=== PATIENT | female | born 1970 | race Caucasian/White ===

== ENCOUNTER → 2016-12-20 | Outpatient (CLI) | payer BC ==
[~2016-12-20] MED LIST: ALBUAER INH; ALBUAER2 INH; EST1 PO; FIBER PO; LORA24TA7 PO; PRENTAB26 PO; TYLOTC500 PO; VITA2500 PO
--- NOTE | 2016-12-20 13:45 | MAMMOGRAPHY REPORT ---
BILATERAL DIGITAL SCREENING MAMMOGRAM TOMOSYNTHESIS WITH CAD: 12/20/2016 CLINICAL HISTORY: Asymptomatic Pre-Reduction. TECHNIQUE: Breast tomosynthesis in addition to standard 2D mammography was performed. Current study was also evaluated with a Computer Aided Detection (CAD) system. COMPARISON: Comparison is made to exams dated: 05/18/2016 ultrasound, 05/18/2016 mammogram, 12/08/2015 mammogram, 12/03/2014 mammogram, 11/19/2013 ultrasound, and 11/19/2013 mammogram - [facility]. BREAST COMPOSITION: There are scattered areas of fibroglandular density in both breasts. FINDINGS: No suspicious masses, calcifications, or areas of architectural distortion are noted in e ither breast. There has been no significant interval change compared to prior exams. Circumscribed benign-appearing 1.9 cm mass in the left subareolar breast is stable compared to prior exams, and wa s shown to represent a benign cyst on a prior ultrasound exam. IMPRESSION: ACR BI-RADS CATEGORY 2: BENIGN There is no mammographic evidence of malignancy. A 1 year screening mammogram is recommended. The p atient will receive written notification of the results. Approximately 10% of breast cancers are not detected with mammography. A negative mammographic repor t should not delay biopsy if a clinically suggestive mass is present. Malou Ceo M.D. /:12/20/2016 13:24:45 Scroll Assembler: Megan Bolaños [facility] letter sent: Normal 1/2 BI-RADS Code: ACR BI-RADS Category 2: Benign
== END | disposition home or self-care (01) ==
LOC: C.MAMM 12:20
PROVIDERS: ATTEND Obstetrics & Gynecology
DX: Z12.31 Encounter for screening mammogram for malignant neoplasm of breast (principal)

== ENCOUNTER 2017-01-07 07:47 | Observation (INO) | payer BC ==
[2017-01-03 08:04] VITALS: BMI 40.0
--- NOTE | 2017-01-03 08:35 | PAT Medication Instructions ---
Service Date Jan 03, 2017. Current Home Medication List Albuterol Sulfate (Proventil Hfa), 2 PUFF INH Q4 PRN for SOB/Wheezing Estradiol (Estradiol), 1 MG PO QAM Fiber Laxative (Fiber Laxative), 1 TAB PO QAM Loratadine/Pseudoephedrine (Claritin-D 24 Hour), 1 TAB PO QAM Multivit/Min/Iron/Fol Ac/Pren ( Vitamin), 1 TAB PO QAM Vitamin A (A-25), 1 CAP PO QAM Medication Instructions For Your Scheduled Surgery Estradiol (Estradiol), 1 MG PO QAM (patient stopped already) Multivit/Min/Iron/Fol Ac/Pren ( Vitamin), 1 TAB PO QAM (patient stopped already) Vitamin A (A-25), 1 CAP PO QAM (per surgeon instructions) - Hold the following medications the morning of surgery: Loratadine/Pseudoephedrine (Claritin-D 24 Hour), 1 TAB PO QAM Fiber Laxative (Fiber Laxative), 1 TAB PO QAM - Take the following medications the morning of surgery with a sip of water: Albuterol Sulfate (Proventil Hfa), 2 PUFF INH Q4 PRN for SOB/Wheezing - Take the following medications as scheduled the night before surgery: Albuterol Sulfate (Proventil Hfa), 2 PUFF INH Q4 PRN for SOB/Wheezing If you have any questions please call us at [phone] or [phone] ( [place]) or [phone]
[2017-01-03 09:36] LABS: BASO % 0.3 %; BASO ABS # 0.02 K/uL (0-0.2); COMPLETE YES; EOS % 3.2 %; HEMATOCRIT 40.9 % (37-47); IG% 0.4 %; LYMPH % 26.1 %; LYMPH ABS # 2.06 K/uL (1.2-3.4); MEAN CELL VOLUME 90.5 fL (80-100); MEAN CORPUSCULAR HEMOGLOBIN 31.2 pg (25-34); MEAN CORPUSCULAR HGB CONC 34.5 g/dl (32-36); MEAN PLATELET VOLUME 9.6 fL (7.4-10.4); MONO % 7.1 %; NEUT % 62.9 %; PLATELET COUNT 305 K/uL (130-400); RED BLOOD COUNT 4.52 M/uL (4.2-5.4)
[2017-01-03 09:56] LABS: PARTIAL THROMBOPLASTIN RATIO 1.1; PROTHROMBIN TIME (PATIENT) 10.2 SECONDS (9.0-12.0)
[2017-01-03 09:58] LABS: BUN/CREATININE RATIO 18.2 (10-20); CREATININE 0.72 mg/dl (0.60-1.20); POTASSIUM 4.4 mmol/L (3.5-5.1)
[2017-01-07] VITALS (8 sets, daily range): BP systolic 109–143; BP diastolic 68–86; PULSE 62–73; TEMP 36.6–37.2; O2SAT 91–97; Ht 177.8 cm; Wt 126.8 kg
[~2017-01-07] VITALS: Ht 177.8 cm; Wt 126.8 kg
[~2017-01-07 07:47] MED LIST changes: -ALBUAER2 INH; +CEFAZOLIN 3000 MG/65 ML D5W IV SCH; +ENOXAPARIN 40 MG/0.4 ML SYR SQ SCH; +LACTATED RINGER'S 1000ML 1,000 ML IV SCH; +SCOPOLAMINE 1.5 MG TDSY TD SCH; -TYLOTC500 PO
[2017-01-07] MEDS ORDERED: NEOSTIGMINE METHYLSULFATE 5 MG/5 ML SYR ONE (07:59)
[2017-01-07] MEDS ORDERED: MIDAZOLAM HCL 1 MG/ML 2ML VIAL ONE (07:59)
[2017-01-07] MEDS ORDERED: LIDOCAINE/EPINEPHRINE 1% 20 ML VIAL ONE (07:59)
[2017-01-07] MEDS ORDERED: LIDOCAINE HCL 1% 20 ML VIAL ONE (07:59)
[2017-01-07] MEDS ORDERED: DEXAMETHASONE SOD INJ 4 MG/ML VIAL ONE (07:59)
[2017-01-07] MEDS ORDERED: EpINEphrine INJ 1MG/ML AMP 1 MG/ML AMP ONE (07:59)
[2017-01-07] MEDS ORDERED: GLYCOPYRROLATE INJ 0.2 MG/ML VIAL ONE (07:59)
[2017-01-07] MEDS ORDERED: ROCURONIUM BROMIDE 10 MG/ML 5 ML VIAL ONE ×2 (07:59→09:59)
[2017-01-07] MEDS ORDERED: LIDOCAINE HCL 2% 2 ML VIAL (20MG/ML) ONE (07:59)
[2017-01-07] MEDS ORDERED: PROPOFOL IV EMULSION 10 MG/ML 20 ML VIAL IV ONE (07:59)
[2017-01-07] MEDS ORDERED: FENTANYL CITRATE INJ 50 MCG/1 ML 2 ML VIAL ONE (07:59)
[2017-01-07] MEDS ORDERED: ONDANSETRON INJ 2 MG/ML 2 ML VIAL ONE ×2 (07:59→11:20)
[2017-01-07] MEDS ORDERED: BUPIVACAINE 0.25% 30 ML VIAL ONE (08:00)
--- NOTE | 2017-01-07 09:10 | History & Physical Bridge Note ---
H&P Re-Evaluation Bridge Note: I have examined the patient, reviewed the History & Physical and in the interval since the performance of the History & Physical I have noted the following changes of clinical significance: No changes noted
[2017-01-07] MEDS ORDERED: FENTANYL CITRATE INJ 50 MCG/1 ML 2 ML VIAL IV PRN (09:30)
[2017-01-07] MEDS ORDERED: ONDANSETRON INJ 2 MG/ML 2 ML VIAL IV PRN ×2 (09:30→13:45)
[2017-01-07] MEDS ORDERED: ATROPINE SULFATE 0.1 MG/ML 5ML SYR IV PRN (09:30)
[2017-01-07] MEDS ORDERED: PROMETHAZINE HCL INJ 6.25 MG in SODIUM CHLORIDE 0.9% 50ML 50 ML IV PRN (09:30)
[2017-01-07] MEDS ORDERED: EpHEDrine SULFATE INJ 50 MG/ML AMP IV PRN (09:30)
[2017-01-07] MEDS ORDERED: HYDROmorphone INJ 1 MG/ML SYR IV PRN (09:30)
[2017-01-07] MEDS ORDERED: METOCLOPRAMIDE HCL INJ 5 MG/ML 2 ML VIAL ONE (09:56)
[2017-01-07] MEDS ORDERED: DiphenhydrAMINE HCL 50 MG/ML VIAL ONE (09:56)
[2017-01-07] MEDS ORDERED: ARTIFICIAL TEARS OP OINT 3.5 GM TUBE ONE (09:56)
[2017-01-07] MEDS ORDERED: HYDROmorphone INJ 2 MG/ML SYR/VIAL ONE (10:03)
--- NOTE | 2017-01-07 13:35 | [facility] Post Operative Brief Note ---
Immediate Operative Summary Operative Date Jan 07, 2017. Pre-Operative Diagnosis Breast hypertrophy Post-Operative Diagnosis Same as pre-operative diagnosis Procedure(s) Performed Bilateral Breast Reduction with Free Nipple Graft Surgeon Dr. Jael Cabrera Tanker Driver Surgeon(s) Ashley Peterson PA-C Estimated Blood Loss 75ml Findings none Specimens A: Left breast tissue (1172 grams) B: Right breast tissue (1224 grams) Drains BRANT x2 Anesthesia general Complication(s) None Disposition Recovery Room / PACU
[2017-01-07] MEDS ORDERED: OXAZEPAM 10MG CAP PO PRN (13:45)
[2017-01-07] MEDS ORDERED: DiphenhydrAMINE HCL 50 MG/ML VIAL IV PRN (13:45)
[2017-01-07] MEDS ORDERED: MoRPHine SULFATE 4 MG/ML 1 ML CARP\\VIAL IV PRN (13:45)
[2017-01-07] MEDS ORDERED: PROMETHAZINE HCL INJ 12.5 MG in SODIUM CHLORIDE 0.9% 50ML 50 ML IV PRN (13:45)
[2017-01-07] MEDS ORDERED: ACETAMINOPHEN 325 MG TAB PO PRN (13:45)
[2017-01-07] MEDS ORDERED: OXYCODONE/ACETAMINOPHEN 5-325 TAB PO PRN ×2 (13:45)
[2017-01-07] MEDS ORDERED: MoRPHine SULFATE 2 MG/ML CARP IV PRN ×2 (13:45)
--- NOTE | 2017-01-07 14:14 | Anesthesiology Progress Note ---
Anesthesia Post Op Note Date & Time Jan 07, 2017 at 14:14 Vital Signs Pain Intensity: 0 Vital Signs Past 12 Hours Date Time Temp Pulse Resp B/P Pulse Ox O2 Delivery O2 Flow Rate FiO2 01/07/17 14:10 36.2 64 16 136/84 100 Nasal Cannula 2 01/07/17 14:00 67 16 140/84 100 Mask 10 01/07/17 13:50 66 16 143/82 100 Mask 10 01/07/17 13:43 36.1 64 16 137/86 100 Mask 10 01/07/17 08:10 36.8 71 18 127/71 95 Room Air Notes Mental Status: alert / awake / arousable, participated in evaluation Pt Amnestic to Procedure: Yes Nausea / Vomiting: adequately controlled Pain: adequately controlled Airway Patency, RR, SpO2: stable & adequate BP & HR: stable & adequate Hydration State: stable & adequate Anesthetic Complications: no major complications apparent
[2017-01-07] MEDS ORDERED: IV FLUIDS COMPLETED PRN (14:30)
[2017-01-07] MEDS: LACTATED RINGER'S 1000ML 1,000 ML IV SCH ×2 (15:25→23:41)
[2017-01-07] MEDS: CEFAZOLIN IV 2,000 MG in DEXTROSE 5% 50ML 50 ML IV SCH (17:27)
[2017-01-08] MEDS: CEFAZOLIN IV 2,000 MG in DEXTROSE 5% 50ML 50 ML IV SCH (02:13)
[2017-01-08 02:50] VITALS: BP 110/72; PULSE 55; TEMP 36.3; O2SAT 93
--- NOTE | 2017-01-08 07:02 | OPERATIVE REPORT ---
DATE OF OPERATION: 01/07/2017 PREOPERATIVE DIAGNOSIS: Bilateral symptomatic macromastia. POSTOPERATIVE DIAGNOSIS: Same. PROCEDURE: Bilateral reduction mammoplasty with free nipple grafting. SURGEON: Dr. Jael Cabrera. SCIENTIFIC RESEARCH MANAGER: Ashley Peterson PA-C. ANESTHESIA: General. COMPLICATIONS: None. INDICATION FOR PROCEDURE: The patient is a 46-year-old female who presented to my office with concerns of back, neck and shoulder pain related to large breasts. Based on substantial sternal notch to nipple distance, I recommended free nipple grafting as opposed to performing pedicle breast reduction. DESCRIPTION OF THE PROCEDURE: The risks, benefits, and alternatives of the procedure were explained to the patient who agreed and signed consent. She was identified and marked in the preoperative holding area. She was brought to the operating room where she was positioned supine and placed under general anesthesia without incident. Surgical site markings were again reassessed. I began with the left breast. 1% lidocaine with epinephrine was used to anesthetize the planned incisions as well as the nipple-areolar complex. A breast tourniquet was applied using Hayley clamp and lap sponge. A 42 mm cookie cutter was used to circumscribe the nipple-areolar complex. Nipple-areolar complex was then removed as a full-thickness graft, placed on the back table in a saline-soaked sponge. At this point, tourniquet was released and the inframammary fold incision was made using a 15 blade scalpel. Electrocautery was used to deepen the incision through subcutaneous fat and breast parenchyma down to chest wall. Care was taken to perform this in a beveled direction, ligating vessels as needed, and achieving hemostasis with electrocautery. Once the breast was mostly undermined, the superior incision was then made to the inferior aspect of the keyhole incision. This was performed using a 15 blade scalpel. Incision was then deepened using electrocautery, again full-thickness through the breast. A similar incision was made laterally. Centrally, the skin was incised using electrocautery and additional breast parenchyma was resected again in beveled fashion in order to retain some projection of the breast. Tissue was passed off for weighing. Additional resection was performed until we achieved desired size and the wound was able to be closed with minimal tension. Total resection weight on the left was 1172 grams. Hemostasis was achieved with electrocautery. 0.25% Marcaine plain was used to anesthetize the incisions as well as the pectoralis fascia. A 15-Mongolian Kb drain was brought out through a separate stab incision laterally toward the axilla. The keyhole was then incised using 15 blade scalpel and de-epithelized. The T-junction was brought together using 2-0 Vicryl suture. Closure was first begun lateral to medial using 2-0 Vicryl interrupted deep dermal sutures and then medial to lateral using 2-0 Vicryl deep dermal sutures. Vertical limb was closed using a combination of 2-0 Vicryl deep dermal sutures and 3-0 PDS interrupted superficial dermal sutures. Inframammary fold incision was closed using 2-0 PDO superficial dermal running Quill suture. The vertical limb and inframammary fold incisions were then closed using 3-0 Monocryl running subcuticular suture. Nipple-areolar complex was inspected and thinned using a curved iris scissor. It was placed in the recipient bed and sutured into place using 4-0 silk tie over bolster sutures and 4-0 chromic interrupted sutures. A similar procedure was undertaken on the right side. Total resection weight of 1224 grams was obtained on the right. There was reasonable symmetry at the close of the case. There were no complications. Dermabond Prineo was placed to the incisions. A tie-over bolster dressing was placed. Dry dressing followed by a surgical bra were placed. The patient was awakened and transferred to recovery in satisfactory condition. Ashley Peterson PA-C, was present and scrubbed throughout the entire procedure and was instrumental in providing retraction, preparation of the nipple graft, and simultaneous wound closure. I attest to the content of the Intraoperative Record and any orders documented therein. Any exceptions are noted below. RADHA
[2017-01-08 07:11] VITALS: BP 139/84; PULSE 63; TEMP 36.5; O2SAT 97
--- NOTE | 2017-01-08 08:41 | Discharge Instructions ---
Discharge Instructions Date of Service Jan 08, 2017. Admission Reason for Admission: Breast Hypertrophy Discharge Discharge Diagnosis / Problem: macromastia Discharge Goals Goal(s): Decrease discomfort Activity Recommendations Activity Limitations: per Instructions/Follow-up section ACTIVITY RECOMMENDATIONS: __Normal activities _x_No bending, lifting or straining __No driving __Driving allowed when you are off pain medications __Walking permitted __You should have help at home for ___ days DRESSINGS: __No dressings required _x_Keep dressings dry/in place until first office visit __Remove dressings ___ and leave dressings off __Apply ice ___ days __Remove dressings and reapply garment __Apply antibiotic ointment (Bacitracin, Neosporin, etc) to wounds 3-4 times/ day for 10 days BATHING: _x_Keep dressings dry _x_Sponge bathing permitted __Showering permitted _x_No swimming, hot tubs or soaking in a tub MEDICATIONS: Resume previous medications unless instructed otherwise by your surgeon. _x_Do not use aspirin, Motrin, Advil or Ibuprofen as these may promote bleeding. Please use Tylenol. _x_Prescription(s) provided: pain medication and antibiotics provided at your last office visit OTHER INSTRUCTIONS: __Record drain output 2-3 times per day SPECIAL CARE INSTRUCTIONS: * It is normal to have a mild fever after surgery. If your temperature is higher than 101.5 degrees F, please call the office at [phone]. * Constipation is a typical side effect of pain medication. An over-the- counter stool softener will help relieve this. * Leaking around surgical drains may occur and should not cause concern. Sometimes these drains become clogged. If this happens, remove the bulb and milk the clot out of the tube, then replace the bulb. * Drainage from wounds after liposuction is normal and should be expected. Garments will become soiled. You should protect furniture and bedding. This drainage should mostly subside within 2-3 days. Leave garments in place unless instructed to remove them. * If you have unusual drainage from a wound or are concerned you have an infection or have any questions or concerns, please call the office at [phone]. FOLLOW UP VISIT: If not already scheduled, please call the office, , when you return home after surgery to schedule an appointment to be seen in _1__ days. . Current Hospital Diet Patient's current hospital diet: Regular Diet Discharge Diet Recommended Diet: Regular Diet Procedures Procedures Performed: Bilateral Breast Reduction with Free Nipple Graft Pending Studies Studies pending at discharge: yes List of pending studies: pathology Medical Emergencies . Who to Call and When: Medical Emergencies: If at any time you feel your situation is an emergency, please call 911 immediately. . Non-Emergent Contact Non-Emergency issues call your: Primary Care Provider, Surgeon . "Provider Documentation" section prepared by Ashley Peterson. VTE Core Measure Inpt VTE Proph given/why not?: Enoxaparin (Lovenox)SQ, SCD's [place] Drug Monitoring Program Search Results: no issues identified
[2017-01-08] MEDS ORDERED: ENOXAPARIN 40 MG/0.4 ML SYR SQ SCH (09:00)
[2017-01-08] MEDS ORDERED: MULTIVITAMIN TAB PO SCH (09:00)
[2017-01-08] MEDS ORDERED: [UNRECOGNIZED DRUG - OTHER] PO SCH (09:00)
[2017-01-08] MEDS ORDERED: CALCIUM POLYCARBOPHIL 1 TAB PO SCH (09:00)
[2017-01-08] MEDS ORDERED: LORATADINE/PSEUDOEPHEDRINE 1 TAB TABCR PO SCH (09:00)
--- NOTE | 2017-01-08 09:34 | Anesthesiology Progress Note ---
Anesthesia Post Op Note Date & Time Jan 08, 2017 at 09:34 Vital Signs Pain Intensity: 3.0 Vital Signs Past 12 Hours Date Time Temp Pulse Resp B/P Pulse Ox O2 Delivery O2 Flow Rate FiO2 01/08/17 08:00 Room Air 01/08/17 07:11 36.5 63 19 139/84 97 Room Air 01/08/17 02:50 36.3 55 17 110/72 93 Room Air 01/08/17 00:30 Room Air 01/07/17 23:08 36.7 62 18 109/68 91 Room Air Notes Mental Status: alert / awake / arousable, participated in evaluation Pt Amnestic to Procedure: Yes Nausea / Vomiting: adequately controlled Pain: adequately controlled Airway Patency, RR, SpO2: stable & adequate BP & HR: stable & adequate Hydration State: stable & adequate Anesthetic Complications: no major complications apparent
--- NOTE | 2017-01-08 10:24 | Surgery Progress Note ---
Surgery Progress Note Date of Service Jan 08, 2017. Subjective Post OP Day: 1 + complaints, + feeling well Objective Vital Signs: Date Time Temp Pulse Resp B/P Pulse Ox O2 Delivery O2 Flow Rate FiO2 01/08/17 08:00 Room Air 01/08/17 07:11 36.5 63 19 139/84 97 Room Air 01/08/17 02:50 36.3 55 17 110/72 93 Room Air 01/08/17 00:30 Room Air 01/07/17 23:08 36.7 62 18 109/68 91 Room Air 01/07/17 19:45 36.6 68 18 141/86 92 Room Air 01/07/17 17:40 37.2 73 16 138/84 92 Room Air 01/07/17 16:47 36.7 62 16 127/78 93 Room Air 01/07/17 16:00 Nasal Cannula 2.0 01/07/17 15:45 36.7 67 16 128/81 95 Nasal Cannula 3.0 01/07/17 15:15 36.6 70 16 142/82 96 Nasal Cannula 3.0 01/07/17 14:40 97 Nasal Cannula 2.0 01/07/17 14:40 36.6 67 18 143/84 97 Nasal Cannula 2.0 01/07/17 14:30 36.2 66 16 143/81 100 Nasal Cannula 2 01/07/17 14:20 61 16 131/84 100 Nasal Cannula 2 01/07/17 14:10 36.2 64 16 136/84 100 Nasal Cannula 2 01/07/17 14:00 67 16 140/84 100 Mask 10 01/07/17 13:50 66 16 143/82 100 Mask 10 01/07/17 13:43 36.1 64 16 137/86 100 Mask 10 Physical Exam: Kb drainage (serous and sanginous drainage ) General Appearance: WD/WN, no apparent distress Incision(s): clean, dry, intact, no erythema Assessment & Plan s/p bilateral breast reduction with free nipple graft 1. doing well. drains removed. will d/c home
[2017-01-08 10:44] VITALS: BP 139/84; PULSE 63; TEMP 36.5; O2SAT 97
--- NOTE | 2017-01-08 11:54 | Discharge Summary ---
Discharge Summary Date of Service Jan 08, 2017. Admission Date/Reason Jan 07, 2017 at 13:46 Breast Hypertrophy. Discharge Date/Disposition Jan 08, 2017 Home Diagnosis Principal Diagnosis: Macromastia Procedure(s) Performed bilateral breast reduction with free nipple graft Medication Reconciliation Continued Medications: Albuterol Sulfate (Proventil Hfa) 108 Mcg/Act Aer 2 PUFF INH Q4 PRN for SOB/Wheezing Fiber Laxative (Fiber Laxative) Ea 1 TAB PO QAM Loratadine/Pseudoephedrine (Claritin-D 24 Hour) 1 Tab Tab 1 TAB PO QAM, TAB Multivit/Min/Iron/Fol Ac/Pren ( Vitamin) Tab 1 TAB PO QAM, TAB CURRENTLY ON HOLD PER SURGEON Vitamin A (A-25) 25,000 Unit Cap 1 CAP PO QAM STARTING ON 01/04/17 Discontinued Medications: Estradiol (Estradiol) 1 Mg Tab 1 MG PO QAM CURRENTLY ON HOLD PER SURGEON Admission Physical Exam As per Admitting History & Physical. Hospital Course Patient presented to [facility] with history of symptomatic macromastia. She was taken to the OR and underwent bilateral breast reduction with free nipple graft. over 1000gm were removed from each breast. Kb drains were placed intraoperatively. She tolerated the procedure well. On POD#1 she was tolerating a regular diet and had excellent pain control. Her drains had 10cc of serosanguineous fluid bilaterally. The drains were removed. Nipple dressing were intact. VSS. Patient was discharged home with instructions to follow-up in office tomorrow. Discharge Instructions Please refer to the electronic Patient Visit Report (Discharge Instructions) for additional information.
== END 2017-01-08 11:23 | disposition home or self-care (01) ==
LOC: ENRESERVTM → ENRESERVDT → C.ACU 07:47 → C.MSW 13:46
PROVIDERS: ADMIT Plastic Surgery; ATTEND Plastic Surgery
DX: N62 Hypertrophy of breast (principal); R92.8 Other abnormal and inconclusive findings on diagnostic imaging of breast; N60.09 Solitary cyst of unspecified breast; E66.9 Obesity, unspecified; J45.909 Unspecified asthma, uncomplicated; Z96.659 Presence of unspecified artificial knee joint; Z80.0 Family history of malignant neoplasm of digestive organs; Z82.49 Family history of ischemic heart disease and other diseases of the circulatory system; Z83.3 Family history of diabetes mellitus

== ENCOUNTER → 2017-12-26 | Outpatient (CLI) | payer OTHER ==
[~2017-12-26] MED LIST changes: -CEFAZOLIN 3000 MG/65 ML D5W IV SCH; -ENOXAPARIN 40 MG/0.4 ML SYR SQ SCH; -EST1 PO; -LACTATED RINGER'S 1000ML 1,000 ML IV SCH; -SCOPOLAMINE 1.5 MG TDSY TD SCH
--- NOTE | 2017-12-26 14:03 | MAMMOGRAPHY REPORT ---
BILATERAL DIGITAL SCREENING MAMMOGRAM TOMOSYNTHESIS WITH CAD: 12/26/2017 CLINICAL HISTORY: Routine screening. Patient has no complaints. TECHNIQUE: Breast tomosynthesis in addition to standard 2D mammography was performed. Current study was also evaluated with a Computer Aided Detection (CAD) system. COMPARISON: Comparison is made to exams dated: 12/20/2016 mammogram, 12/08/2015 mammogram, 12/03/2014 ma mmogram, 11/19/2013 ultrasound, and 11/19/2013 ultrasound - [facility]. BREAST COMPOSITION: There are scattered areas of fibroglandular density in both breasts. FINDINGS: There has been a reduction mammoplasty since the prior mammograms performed 12/20/2016. Th ere are asymmetries along the inferior aspects of each breast, consistent with postsurgical change. However, there is a newly visualized 16 mm circumscribed oval mass in the 6:00 posterior left breast, for which further characterization with targeted ultrasound is recommended. A newly visualized smal l grouping of microcalcifications in the medial posterior left breast on the CC view, thought to proj ect inferiorly on the MLO view warrant additional spot magnification views. No other suspicious mass, architectural distortion or cluster of microcalcifications is seen. IMPRESSION: ACR BI-RADS CATEGORY 0: INCOMPLETE EVALUATION: NEED ADDITIONAL IMAGING EVALUATION The newly visualized 16 mm circumscribed oval mass in the 6:00 left breast and small new grouping of microcalcifications in the medial posterior left breast need additional imaging evaluation. The patient will be called to schedule an appointment. Approximately 10% of breast cancers are not detected with mammography. A negative mammographic report should not delay biopsy if a clinically suggestive mass is present. Janessa Morgan M.D. ay/:12/26/2017 08:47:03 Supervisor Farm Equipment Maintenance: Nicolle ANDRE)(Shayla), [facility] letter sent: Addl Imaging 0 BI-RADS Code: ACR BI-RADS Category 0: Incomplete Evaluation: Need Additional Imaging Evaluation
== END | disposition home or self-care (01) ==
LOC: C.MAMM 08:07
PROVIDERS: ATTEND Obstetrics & Gynecology
DX: Z12.31 Encounter for screening mammogram for malignant neoplasm of breast (principal); N63.20 Unspecified lump in the left breast, unspecified quadrant; R92.0 Mammographic microcalcification found on diagnostic imaging of breast

== ENCOUNTER → 2018-01-09 | Outpatient (CLI) | payer OTHER ==
--- NOTE | 2018-01-09 15:05 | MAMMOGRAPHY REPORT ---
UNILATERAL LEFT DIGITAL DIAGNOSTIC MAMMOGRAM AND TARGETED LEFT ULTRASOUND: 01/09/2018 CLINICAL HISTORY: Callback from screening mammogram for left breast calcifications and left breast ma ss. History of reduction mammoplasty 2017. TECHNIQUE: Spot magnification left CC and ML views were obtained. COMPARISON: Comparison is made to exams dated: 12/26/2017 mammogram, 12/20/2016 mammogram, 05/18/2016 u ltrasound, 05/18/2016 mammogram, 12/08/2015 mammogram, and 11/19/2013 ultrasound - [facility]. BREAST COMPOSITION: There are scattered areas of fibroglandular density in the left breast. FINDINGS: Spot magnification views of the left breast demonstrates a new small 2 mm cluster of amorph ous calcifications within the left medial breast at approximately 9:00. A few other scattered simila r appearing calcifications are seen within the left lower inner quadrant which are also new compared to the prior exam. Given that the patient has had an interval reduction mammoplasty, the calcificati ons are probably benign and likely represent fat necrosis. A circumscribed 17 mm mass is seen within the left inferior breast on the spot magnification ML view. Calcifications are seen within the mass which demonstrate layering on the lateral view, suggestive of milk of calcium within a cyst. Targeted ultrasound was performed of the left breast in the region of the new mammographic mass. In the left breast at 5:00-6:00, 9 cm from the nipple, there is a lobulated circumscribed mass which paola sures 1.4 x 1.0 x 1.3 cm. The mass is anechoic and therefore appears cystic although does have some echogenic material within it. The mammographic calcifications are also seen within the mass. Given the presence of layering calcifications within the mass, the mass is probably benign and likely repre sents a complicated cyst with internal proteinaceous material. Additionally, this appears similar to another previously seen complicated cyst in the left breast on the 2016 ultrasound exam. IMPRESSION: ACR-BI-RADS CATEGORY 3: PROBABLY BENIGN, TARGETED ULTRASOUND ACR-BI-RADS CATEGORY 3: PRO BABLY BENIGN 1. New small 2 mm cluster of amorphous calcifications within the left 9:00 breast, as well as other scattered new calcification seen within the left lower inner quadrant. The calcifications are probab ly benign and likely represent fat necrosis related to a recent reduction mammoplasty. Recommend fol low-up diagnostic mammograms of the left breast in 6 months to reevaluate. 2. Circumscribed 1.4 cm mass in the left breast at 5:00-6:00, which is probably benign and likely re presents a complicated cyst. Recommend follow-up diagnostic mammograms and possible targeted ultraso und of the left breast in 6 months to reevaluate. The patient has been verbally notified of the results. Approximately 10% of breast cancers are not detected with mammography. A negative mammographic report should not delay biopsy if a clinically suggestive mass is present. Malou Coe M.D. ah/:01/09/2018 09:46:24 Refrigerator Mover: Megan PALMER(Dwayne)(Shayla), [facility] letter sent: Follow Up Recommended 3 BI-RADS Code: ACR-BI-RADS Category 3: Probably Benign Ultrasound BI-RADS: ACR-BI-RADS Category 3: Pr obably Benign
== END | disposition home or self-care (01) ==
LOC: C.MAMM 08:56
PROVIDERS: ATTEND Obstetrics & Gynecology
DX: N63.20 Unspecified lump in the left breast, unspecified quadrant (principal); R92.1 Mammographic calcification found on diagnostic imaging of breast

== ENCOUNTER 2019-11-17 09:49 | Inpatient (IN) ==
--- NOTE | 2019-10-15 10:00 | PAT Medication Instructions ---
Medication Instructions Date of Service October 15, 2019 Home Medications estradiol 1 mg PO QAM loratadine [Claritin] 10 mg PO QAM montelukast [Singulair] 10 mg PO QPM multivitamin 1 cap PO QAM sodium chloride [Saline Mist] 1 spray INTRANASAL BID ASK your prescriber and surgeon estradiol 1 mg PO QAM DO NOT take the morning of surgery loratadine [Claritin] 10 mg PO QAM multivitamin 1 cap PO QAM Take morning of surgery With a small sip of water, OTHERWISE NOTHING TO EAT OR DRINK AFTER MIDNIGHT: sodium chloride [Saline Mist] 1 spray INTRANASAL BID Take evening before surgery montelukast [Singulair] 10 mg PO QPM sodium chloride [Saline Mist] 1 spray INTRANASAL BID Other Notes If you have any questions please call us at [phone] or [phone] or [phone] or [phone]
--- NOTE | 2019-10-19 10:57 | Anesthesiology Consultation ---
Date of Service October 19, 2019 Assessment & Plan (1) Encounter for pre-operative examination: - Hx PONV: order for scope patch for AM DOS* Chart Review Chart Review: Acceptable Risk for Surgery (pending surgeon-ordered PCP preop evaluation scheduled 11/05 (Dr. Barkley)) and Patient seen in Pre Admission Testing Teaching & Discussion Pre-Anesthesia Teaching/Discussion Notes: Instructed NPO after midnight before surgery,except medications with 15 cc of water. Medication instructions provided according to the PAT guidelines. History Surgery Operation Date: 11/17/19 07:15 Proposed Procedures p Left Total Knee Revision with Poly Exchange - David Grimaldo DO Height/Weight Height: 5 ft 10 in Weight: 127.7 kg Allergies Allergy/AdvReac Type Severity Reaction Status Date / Time aspirin Allergy Unknown rash, Verified 10/19/19 10:51 hives, swelling pollen extracts Allergy Unknown hayfever Verified 10/12/19 08:29 CAT, DOG [OTHER] Allergy Unknown Hayfever Uncoded 10/12/19 08:29 Dust Allergy Unknown hayfever Uncoded 10/12/19 08:29 Medications Home Medications Medication Instructions Recorded Confirmed Last Taken estradiol 1 mg PO QAM 10/12/19 10/19/19 Unknown loratadine [Claritin] 10 mg PO QAM 10/12/19 10/19/19 Unknown montelukast [Singulair] 10 mg PO QPM 10/12/19 10/19/19 Unknown multivitamin 1 cap PO QAM 10/12/19 10/19/19 Unknown sodium chloride [Saline Mist] 1 spray INTRANASAL BID 10/12/19 10/12/19 Unknown Past Medical History Medical History Asthma stable Morbid obesity Neck problem s/p cortisone injection 10/05/19 (patient to make surgeon office aware) Snores no sleep study Exercise / Class Metabolic Activity II 4-5 Yardwork/Stairs/Walk up hill Past Family History Family History Aunt Family history of colon cancer Grandfather (Maternal) Family history of prostate cancer Grandmother (Maternal) Family history of liver cancer Other Family history of Alzheimer's disease Family history of [place] (myocardial infarction) Patient's father is Patient's mother is Past Surgical History Surgical History History of bilateral breast reduction surgery History of colonoscopy History of dilatation and curettage History of laparoscopy ENDOMETRIOSIS X1 History of left knee surgery X5 History of right knee surgery X4 History of tonsillectomy History of total bilateral knee replacement History of total hysterectomy on estradiol Past Anesthesia History No Hx of Anesthesia Complications (except PONV) and No Family Hx of Anesthesia Complications History of PONV No Hx of Motion Sickness and History of PONV (+ significant improvement when scope patch used previously) Social History Smoking Status: Never smoker Do You Dip or Chew Tobacco: No Hx Alcohol Use: Yes Alcohol type: wine alcohol intake frequency: a few times a month Hx Substance Use: No substance use type: does not use Review of Systems Patient denies chest pain, shortness of breath, dyspnea on exertion, reflux, cough, wheezing, palpitations. Physical Exam Vital Signs VITALS BP 139/83 P 66 TEMP 98.1 SP02 94%RA RESP 18 PHYSICAL Full neck and c-spine range of motion. Full TMJ range of motion. TMD 4 finger breaths Mallampati Score 3 Dentition: intact Lungs: clear throughout to auscultation Cardiac: regular rate and rhythm, no murmurs noted Spine: normal Carotid arteries: negative bruit Extremities: no edema Testing Laboratory Results 10/19/19 11:18 10/19/19 11:18 PT 10.2 Seconds (9.0-12.0) 10/19/19 11:18 INR 1.0 (0.9-1.1) 10/19/19 11:18 APTT 27.2 Seconds (21.0-31.0) 10/19/19 11:18 Hemoglobin A1c 5.4 % (4.5-5.6) 10/19/19 11:18 Urine Color Yellow 10/19/19 11:18 Urine Appearance Clear (Clear) 10/19/19 11:18 Urine pH 5.0 (4.5-7.5) 10/19/19 11:18 Ur Specific [place] 1.024 (1.000-1.030) 10/19/19 11:18 Urine Protein Negative (Negative) 10/19/19 11:18 Urine Glucose (UA) Negative (Negative) 10/19/19 11:18 Urine Ketones Negative (Negative) 10/19/19 11:18 Urine Nitrite Negative (Negative) 10/19/19 11:18 Ur Leukocyte Esterase Negative (Negative) 10/19/19 11:18 Blood Type B Positive 10/19/19 11:18 Antibody Screen NEGATIVE 10/19/19 11:18 Electrocardiogram Date: 10/19/19 SB at 59bpm. No significant change compared to 01/03/17 per cardiology. Chest X-Ray Date: 10/19/19 Findings: + NAD Echocardiogram Date: 04/03/19 LVEF 60-64%. No significant valvular disease. No MVP.
--- NOTE | 2019-10-19 11:43 | XRay Report ---
TWO VIEW CHEST CLINICAL HISTORY: Preoperative examination. FINDINGS: PA and lateral chest radiographs are obtained. No prior studies are available for compariso n at the time of dictation. The cardiomediastinal silhouette is unremarkable. The lungs and pleural spaces are clear. There is no pneumothorax. The bony thorax appears intact. IMPRESSION: No active disease in the chest. Electronically signed by: Tyrell Cary M.D. 10/19/2019 11:42 AM
[2019-10-19 12:34] LABS: Basophils # (auto) 0.02 K/uL (0-0.2); Basophils % (auto) 0.2 %; Eosinophils # (auto) 0.15 K/uL (0-0.5); Eosinophils % (auto) 1.6 %; Hemoglobin 13.3 g/dL (12.0-16.0); Immature Granulocytes # (auto) 0.03 K/uL (0.00-0.02); Immature Granulocytes % (auto) 0.3 %; Lymphocytes # (auto) 2.42 K/uL (1.2-3.4); Lymphocytes % (auto) 25.1 %; Mean Corpuscular Hemoglobin 31.3 pg (25-34); Mean Corpuscular Hgb Conc 34.1 g/dL (32-36); Mean Corpuscular Volume 91.8 fL (80-100); Mean Platelet Volume 9.7 fL (7.4-10.4); Monocytes # (auto) 0.61 K/uL (0.11-0.59); Monocytes % (auto) 6.3 %; Neutrophils # (auto) 6.42 K/uL (1.4-6.5); Neutrophils % (auto) 66.5 %; Platelet Count 286 K/uL (130-400); RDW Coefficient of Variation 13.1 % (11.5-14.5); RDW Standard Deviation 43.5 fL (36.4-46.3); Red Blood Count 4.25 M/uL (4.2-5.4); White Blood Count 9.65 K/uL (4.8-10.8)
[2019-10-19 12:42] LABS: Appearance Urine Clear (Clear); Bilirubin Urine Negative (Negative); Blood Urine Negative (Negative); Color Urine Yellow; Glucose Urine UA Negative (Negative); Ketones Urine Negative (Negative); Leukocyte Esterase Urine Negative (Negative); Nitrite Urine Negative (Negative); Protein Urine Negative (Negative); Specific Gravity Urine 1.024 (1.000-1.030); Urobilinogen Urine Negative (Negative)
[2019-10-19 12:54] LABS: Partial Thromboplastin Time 27.2 Seconds (21.0-31.0); Prothrombin Time 10.2 Seconds (9.0-12.0)
[2019-10-19 12:59] LABS: Estimated Average Glucose 108 mg/dl; Hemoglobin A1C 5.4 % (4.5-5.6)
[2019-10-19 13:08] LABS: Albumin Level 3.3 gm/dl (3.4-5.0); BUN Creatinine Ratio 20.2 (10-20); Calcium 8.9 mg/dl (8.5-10.1); Creatinine Clr Calc Pharmacy 152.4 ml/min; Est GFR (African American) 120.8; Est GFR (Non-African American) 104.3; Potassium 3.7 mmol/L (3.5-5.1)
--- NOTE | 2019-10-19 14:09 | History & Physical Report ---
Date of Service October 19, 2019 date of surgery: 11/17/19 Assessment & Plan (1) Painful total knee replacement, left: Risks and benefits of procedure discussed in detail today, patient would like to proceed with a left knee poly exchange vs possible total knee revision at [facility] as scheduled. will obtain medical clearance prior to surgery as well as obtain PATs at [facility]. Will place on ASA 81mg po bid x 1 month post op, f/u 2 weeks post op for routine post-operative care and x-ray, sooner if having any problems. will make arrangements for OPPT at the time of discharge. At this point in time, has failed conservative measures and would like to proceed with surgical intervention. History of Present Illness Chief Complaint: left knee pain Primary Care Provider: Sydney Barkley MD Ms Prasad is a 49 year old female who is here for a follow up of left knee pain, presents for pre-op eval prior to a left knee poly exchange vs left total knee revision at [facility]. She complains of pain in her left knee. Currently the patient states that the symptoms are moderate-severe and is described as aching, sharp and throbbing. The symptoms occur intermittently. The symptoms are aggravated by daily activities, ascending stairs, descending stairs, driving, first steps while awake, movement, repetitive activities, sleeping in any position and walking. Marcia states that the symptoms are relieved by no specific activity. In addition to knee pain, she is also experiencing difficulty bending, decreased mobility, difficulty going to sleep, limping, nighttime awakening, pain, stiffness, tenderness and weakness. The patient has had a previous x-ray and bone scan. 01/18/2015 Dr. Grimaldo performed b/l knee TKA. Allergies Allergy/AdvReac Type Severity Reaction Status Date / Time aspirin Allergy Unknown rash, Verified 10/19/19 10:51 hives, swelling pollen extracts Allergy Unknown hayfever Verified 10/12/19 08:29 CAT, DOG [OTHER] Allergy Unknown Hayfever Uncoded 10/12/19 08:29 Dust Allergy Unknown hayfever Uncoded 10/12/19 08:29 Home Medications Home Medications Medication Instructions Recorded Confirmed Type estradiol 1 mg PO QAM 10/12/19 10/19/19 History loratadine [Claritin] 10 mg PO QAM 10/12/19 10/19/19 History montelukast [Singulair] 10 mg PO QPM 10/12/19 10/19/19 History multivitamin 1 cap PO QAM 10/12/19 10/19/19 History sodium chloride [Saline Mist] 1 spray INTRANASAL BID 10/12/19 10/12/19 History Past Med/Surg History Medical History Asthma stable Morbid obesity Neck problem s/p cortisone injection 10/05/19 (patient to make surgeon office aware) Snores no sleep study Surgical History History of bilateral breast reduction surgery History of colonoscopy History of dilatation and curettage History of laparoscopy ENDOMETRIOSIS X1 History of left knee surgery X5 History of right knee surgery X4 History of tonsillectomy History of total bilateral knee replacement History of total hysterectomy on estradiol Family History Aunt Family history of colon cancer Grandfather (Maternal) Family history of prostate cancer Grandmother (Maternal) Family history of liver cancer Other Family history of Alzheimer's disease Family history of [place] (myocardial infarction) Patient's father is Patient's mother is Social History Preferred Language: Sammarinese Communication Ability: Effective 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 Beliefs That Will Affect Care: None Current Living Situation: Spouse Other Information That Helps Us Care for You: No Feels Safe at Home: Yes Smoking Status: Never smoker Do You Dip or Chew Tobacco: No ; Second Hand Exposure: No ; Hx Alcohol Use: Yes Alcohol type: wine Hx Substance Use: No Review of Systems Review of Systems: All systems reviewed & are unremarkable except as noted in HPI & below Constitutional: no fever, no chills and no sweats Respiratory: no cough and no dyspnea Cardiovascular: no chest pain, no dyspnea and no orthopnea Gastrointestinal: no abdominal pain, no nausea and no vomiting Musculoskeletal: as per Subjective / HPI Physical Exam Physical Exam: Ht: 5ft 10in Wt: 127.7kg BP: 118/78 Constitutional: WD/WN, vitals as above no acute distress Respiratory: normal respiratory effort, lungs clear to auscultation no respiratory distress, no labored breathing and does not use accessory muscles Cardiovascular: RRR, no murmur, no edema Gastrointestinal (Abdomen): normal bowel sounds, soft, nontender, no hepatosplenomegaly Musculoskeletal: Left Knee Exam Ambulates with a limp, overall neutral alignment, there is no atrophy warmth or ecchymosis noted, mild effusion, maximum tenderness medial retinaculum. negative patellar Apprehension , no crepitation with motion, valgus stress Negative, Varus stress Negative, no Extensor lag, Pain with Active range of motion, also passive painful ROM, Range of motion 0/3/115. No pain with active/passive ROM of ankle. Lower Extremity Strength normal. Lower Extremity Neuro-vascular is normal Results & Data Laboratory Results Laboratory Results WBC 9.65 K/uL (4.8-10.8) 10/19/19 11:18 RBC 4.25 M/uL (4.2-5.4) 10/19/19 11:18 Hgb 13.3 g/dL (12.0-16.0) 10/19/19 11:18 Hct 39.0 % (37-47) 10/19/19 11:18 MCV 91.8 fL (80-100) 10/19/19 11:18 MCH 31.3 pg (25-34) 10/19/19 11:18 MCHC 34.1 g/dL (32-36) 10/19/19 11:18 RDW Std Deviation 43.5 fL (36.4-46.3) 10/19/19 11:18 RDW Coeff of [place]ena 13.1 % (11.5-14.5) 10/19/19 11:18 Plt Count 286 K/uL (130-400) 10/19/19 11:18 MPV 9.7 fL (7.4-10.4) 10/19/19 11:18 Immature Gran % (Auto) 0.3 % 10/19/19 11:18 Neut % (Auto) 66.5 % 10/19/19 11:18 Lymph % (Auto) 25.1 % 10/19/19 11:18 [place] % (Auto) 6.3 % 10/19/19 11:18 Eos % (Auto) 1.6 % 10/19/19 11:18 Baso % (Auto) 0.2 % 10/19/19 11:18 Immature Gran # (Auto) 0.03 K/uL (0.00-0.02) H 10/19/19 11:18 Neut # (Auto) 6.42 K/uL (1.4-6.5) 10/19/19 11:18 Lymph # (Auto) 2.42 K/uL (1.2-3.4) 10/19/19 11:18 [place] # (Auto) 0.61 K/uL (0.11-0.59) H 10/19/19 11:18 Eos # (Auto) 0.15 K/uL (0-0.5) 10/19/19 11:18 Baso # (Auto) 0.02 K/uL (0-0.2) 10/19/19 11:18 PT 10.2 Seconds (9.0-12.0) 10/19/19 11:18 INR 1.0 (0.9-1.1) 10/19/19 11:18 APTT 27.2 Seconds (21.0-31.0) 10/19/19 11:18 PTT Ratio 1.0 10/19/19 11:18 Sodium 139 mmol/L (136-145) 10/19/19 11:18 Potassium 3.7 mmol/L (3.5-5.1) 10/19/19 11:18 Chloride 108 mmol/L (98-107) H 10/19/19 11:18 Carbon Dioxide 25 mmol/L (21-32) 10/19/19 11:18 Anion Gap 6.0 (3-11) 10/19/19 11:18 BUN 13 mg/dl (7-18) 10/19/19 11:18 Creatinine 0.65 mg/dl (0.6-1.2) 10/19/19 11:18 Est Cr Clr Drug Dosing 152.4 ml/min 10/19/19 11:18 Est GFR ( Amer) 120.8 10/19/19 11:18 Est GFR (Non-Af Amer) 104.3 10/19/19 11:18 BUN/Creatinine Ratio 20.2 (10-20) H 10/19/19 11:18 Glucose 89 mg/dl (70-99) 10/19/19 11:18 Estimat Average Glucose 108 mg/dl 10/19/19 11:18 Hemoglobin A1c 5.4 % (4.5-5.6) 10/19/19 11:18 Calcium 8.9 mg/dl (8.5-10.1) 10/19/19 11:18 Albumin 3.3 gm/dl (3.4-5.0) L 10/19/19 11:18 Urine Color Yellow 10/19/19 11:18 Urine Appearance Clear (Clear) 10/19/19 11:18 Urine pH 5.0 (4.5-7.5) 10/19/19 11:18 Ur Specific [place] 1.024 (1.000-1.030) 10/19/19 11:18 Urine Protein Negative (Negative) 10/19/19 11:18 Urine Glucose (UA) Negative (Negative) 10/19/19 11:18 Urine Ketones Negative (Negative) 10/19/19 11:18 Urine Blood Negative (Negative) 10/19/19 11:18 Urine Nitrite Negative (Negative) 10/19/19 11:18 Urine Bilirubin Negative (Negative) 10/19/19 11:18 Urine Urobilinogen Negative (Negative) 10/19/19 11:18 Ur Leukocyte Esterase Negative (Negative) 10/19/19 11:18 Blood Type B Positive 10/19/19 11:18 Antibody Screen NEGATIVE 10/19/19 11:18 Diagnostic Findings Left Knee: Radiographs reveal a cemented total knee replacement arthroplasty in acceptable position and alignment. No evidence of loosening or loss of fixation is noted. The patella is tracking well. ASSESSMENT: status post cemented posterior stabilized total knee replacement arthroplasty. Left knee bone scan- no signs of loosening or infection present on bone scan.
[~2019-11-17 09:49] MED LIST changes: +ACETAMINOPHEN 500 MG TAB PO SCH; -ALBUAER INH; +BUPIVACAINE 0.5 % 5 MG/1 ML PF 10ML VIAL ONE; +CEFAZOLIN 3000MG 72.5 ML IV SCH; +CeleBREX 200 MG CAP PO SCH; -FIBER PO; +GABAPENTIN 300 MG CAP PO SCH; +GABAPENTIN 900 MG DOSE PO SCH; -LORA24TA7 PO; +LR 500ML BOLUS, THEN 15ML/HR IV SCH; -PRENTAB26 PO; +ROPIVACAINE 0.5% 5 MG/ML 30 ML VIAL ONE; +ROPIVACAINE 0.5% HCL/PF 150 MG, BUPIVACAINE 0.5% MPF 30 ML, EPINEPHrine 30MG/30ML (OR U... INSTIL SCH; +SCOPOLAMINE 1.5 MG TDSY TD SCH; -VITA2500 PO
[2019-11-17] MEDS ORDERED: PROPOFOL IV EMULSION 10 MG/ML 20 ML VIAL IV ONE ×2 (10:56→14:07)
[2019-11-17] MEDS ORDERED: ONDANSETRON INJ 2 MG/ML 2 ML VIAL ONE (10:56)
[2019-11-17] MEDS ORDERED: LIDOCAINE HCL 2% 2 ML VIAL/AMP(20MG/ML) INFIL ONE (10:56)
[2019-11-17] MEDS ORDERED: MIDAZOLAM HCL 1 MG/ML 2ML VIAL ONE ×2 (10:57→12:50)
[2019-11-17] MEDS ORDERED: fentaNYL citrate 100 MCG/2 ML VIAL ONE (10:57)
--- NOTE | 2019-11-17 11:17 | History & Physical Bridge Note ---
Date of Service November 17, 2019 History & Physical Bridge Note I have examined the patient, reviewed the History & Physical and in the interval since the performance of the History & Physical I have noted the following changes of clinical significance: no changes noted
[2019-11-17] MEDS ORDERED: ORTHO JOINT ANESTHETIC ONE (11:57)
[2019-11-17] MEDS ORDERED: BACITRACIN INJ 50,000 UNIT VIAL ONE (11:57)
[2019-11-17] MEDS ORDERED: ATROPINE SULFATE 0.1 MG/ML 10ML SYR IV PRN (12:22)
[2019-11-17] MEDS ORDERED: ePHEDrine sulfate 50 MG/ML AMP IV PRN (12:22)
[2019-11-17] MEDS ORDERED: TRANEXAMIC ACID / 0.7% NACL 1,000 MG/100 ML BAG IV STA ×2 (13:09→13:10)
[2019-11-17] MEDS ORDERED: TRANEXAMIC ACID / 0.7% NACL 1000MG/100ML BAG IV ONE (13:10)
--- NOTE | 2019-11-17 13:26 | Operative Report ---
Post Operative Report Pre & Post Diagnosis Operation Date: 11/17/19 12:35 Pre-Op Diagnosis: LEFT KNEE MECHANICAL LOOSENING OF OTHER INTERNAL P Post-Op Diagnosis: LEFT KNEE MECHANICAL LOOSENING OF OTHER INTERNAL P I identified the patient and participated in the time-out.: Yes Procedure Operation Date: 11/17/19 12:35 Actual Procedures p Left Total Knee Revision with Poly Exchange(Left) three 4 x 18 high flex journey 2 poly-- David Grimaldo DO Surgeon David Grimaldo DO Cigarette Seller ARVIND Hernandez Estimated Blood Loss 5 Findings Consistent with Post-Op Diagnosis Patient presents with ligamentous laxity medial lateral in both extension flexion mid flexion there is been no response to conservative management quitting bracing therapy at the time of surgery this was verified no evidence of any type of infectious etiology was noted no synovitis but the market laxity in both flexion extension mid flexion that had been progressive over time patient did relate having a fall injury which was the instigating part of this and had progressive loosening of her ligaments over the ensuing last 6 months Specimens Poly- Complications none Disposition Accompanied Patient To Recovery: No Disposition: Recovery Room Indications Patient presents with ligamentous laxity no response to conservative management adamant that she had a fall and sustained an MCL laxity and progressive laxity progression of the last 6 months both flexion extension mid flexion presents for poly-change no component loosening was noted at the time of surgery above intraoperative findings were noted she is failed attempts at bracing physical therapy relative rest activity modification Description of Procedure After proper prepping draping the left lower extremity incision made over the region of the previous extensor incision dissection carried down the medial parapatellar incision was opened a partial synovectomy was performed there was clear lab ligamentous laxity notes of any type of infectious etiology was noted no component loosening was noted patella was well fit well fitted and solid but the femur and tibial components were well fitted and solid subsequently the poly ethylene component was removed and was upsized to a size 18 from 13 gave excellent stability in both flexion extension and mid flexion stability throughout all ranges wound was irrigated with copious nonsterile saline solution the final poly-was then placed the medial parapatellar was closed in 1 Vicryl subcuticular 2-0 Vicryl skin was closed with running subcuticular Monocryl and skin glue sterile compressive dressings placed the patient taken recovery in stable condition Ted SAMUELS was necessary prepping draping retraction wound closure defect subcu skin was necessary for the case I attest to the content of the Intraoperative Record and any orders documented therein. Any exceptions are noted below.
--- NOTE | 2019-11-17 14:22 | Anesthesiology Progress Note ---
Date of Service November 17, 2019 Anesthesia Post Procedure Vital Signs Vital Signs: Temp Pulse Resp BP BP Pulse Ox 11/17/19 14:15 57 L 16 118/73 100 11/17/19 14:05 72 13 129/77 99 11/17/19 13:59 36.6 C 74 18 115/77 95 11/17/19 10:42 37.2 C 60 18 118/54 L 95 Pain Intensity Left Knee: Pain Intensity: 0 Transfer of Care Handoff Completed per policy Notes Mental Status: alert / awake / arousable and participated in evaluation Patient Amnestic to Procedure: Yes Nausea / Vomiting: adequately controlled Pain: adequately controlled Airway Patency, RR, SpO2: stable & adequate BP & HR: stable & adequate Hydration State: stable & adequate Neuraxial Anesthesia: was administered and sensory block is resolving Anesthetic Complications: no major complications apparent
--- NOTE | 2019-11-17 14:29 | XRay Report ---
XR knee LT 1 or 2V routine CLINICAL HISTORY: 49 years-old Female presenting with Surgical Post Op. TECHNIQUE: Frontal and crosstable lateral views of the left knee were obtained. COMPARISON: 01/18/2015. FINDINGS: Postsurgical changes of total left knee arthroplasty with patellar resurfacing. Expected intra-articu lar and soft tissue emphysema. Skin bethany in place. No malalignment. No periprosthetic fracture or lucency. IMPRESSION: Expected postsurgical appearance status post total left knee arthroplasty with patellar resurfacing. ACT 112: Negative or not required by law. Electronically signed by: Hola Franz M.D. 11/17/2019 2:28 PM
[2019-11-17] MEDS: SODIUM CHLORIDE 0.9% 1000ML 1,000 ML IV SCH (14:45)
[2019-11-17] MEDS ORDERED: NALOXONE HCL 0.4 MG/1 ML VIAL/CARP IV PRN (14:56)
[2019-11-17] MEDS ORDERED: OXYCODONE HCL IR 5 MG TAB (IMMEDIATE RELEASE) PO PRN (14:56)
[2019-11-17] MEDS ORDERED: MAGNESIUM HYDROXIDE SUSP 30 ML UDC PO PRN (14:56)
[2019-11-17] MEDS ORDERED: bisacodyL 10 MG SUPP PR PRN (14:56)
[2019-11-17] MEDS ORDERED: HYDROmorphone INJ 1 MG/ML SYRINGE IV PRN (14:56)
[2019-11-17] MEDS ORDERED: METOCLOPRAMIDE HCL INJ 5 MG/ML 2 ML VIAL IV PRN (14:56)
[2019-11-17] MEDS ORDERED: ONDANSETRON INJ 2 MG/ML 2 ML VIAL IV PRN (14:56)
[2019-11-17] MEDS: MISSING PHYSICIAN SIGNATURE ON ORDER SCH ×3 (15:03→15:06)
[2019-11-17] MEDS ORDERED: CHECK SCOPOLAMINE PATCH PLACEMENT SCH (16:00)
[2019-11-17] MEDS: KETOROLAC TROMETHAMINE 15 MG/ML VIAL IV SCH ×2 (16:42→21:03)
[2019-11-17] MEDS ORDERED: SENNA 8.6 MG TAB PO SCH (21:00)
[2019-11-17] MEDS ORDERED: MONTELUKAST SODIUM 10 MG TABLET PO SCH (21:00)
[2019-11-17] MEDS: CEFAZOLIN 2000MG 2,000 MG/15 ML SYR IV SCH (21:02)
[2019-11-17] MEDS: ACETAMINOPHEN 500 MG TAB PO SCH (21:03)
[2019-11-17] MEDS: DOCUSATE SODIUM 100 MG CAP PO SCH (21:03)
[2019-11-18] MEDS: SODIUM CHLORIDE 0.9% 1000ML 1,000 ML IV SCH (00:48)
[2019-11-18] MEDS: KETOROLAC TROMETHAMINE 15 MG/ML VIAL IV SCH ×2 (03:29→09:44)
[2019-11-18] MEDS: CEFAZOLIN 2000MG 2,000 MG/15 ML SYR IV SCH (05:16)
[2019-11-18] MEDS: ACETAMINOPHEN 500 MG TAB PO SCH (05:16)
[2019-11-18 06:27] LABS: Hematocrit (blood only) 38.2 % (37-47); Mean Corpuscular Hemoglobin 31.3 pg (25-34); Mean Platelet Volume 9.2 fL (7.4-10.4); Platelet Count 293 K/uL (130-400); RDW Coefficient of Variation 13.1 % (11.5-14.5); Red Blood Count 4.15 M/uL (4.2-5.4); White Blood Count 12.39 K/uL (4.8-10.8)
[2019-11-18 06:57] LABS: BUN Creatinine Ratio 12.4 (10-20); Calcium 8.7 mg/dl (8.5-10.1); Creatinine Clr Calc Pharmacy 144.6 ml/min; Est GFR (African American) 118.5; Est GFR (Non-African American) 102.2; Potassium 4.1 mmol/L (3.5-5.1)
--- NOTE | 2019-11-18 07:53 | Anesthesiology Progress Note ---
Date of Service November 18, 2019 Anesthesia Post Procedure Vital Signs Vital Signs: Temp Pulse Pulse Resp BP BP Pulse Ox 11/18/19 07:10 36.9 C 50 L 16 123/83 92 11/18/19 07:01 36.5 C 55 L 16 131/84 92 11/18/19 03:23 36.5 C 55 L 16 141/88 H 92 11/17/19 23:32 36.6 C 53 L 16 125/78 92 11/17/19 19:54 36.8 C 57 L 16 118/62 92 11/17/19 17:50 36.7 C 72 16 133/85 94 11/17/19 16:40 36.4 C L 62 16 119/76 93 11/17/19 15:47 36.4 C L 50 L 14 120/80 92 11/17/19 15:12 36.4 C L 55 L 13 122/81 98 11/17/19 14:45 36.4 C L 59 L 15 122/83 97 11/17/19 14:35 36.5 C 50 L 12 122/74 100 11/17/19 14:25 52 L 15 130/74 100 11/17/19 14:15 57 L 16 118/73 100 11/17/19 14:05 72 13 129/77 99 11/17/19 13:59 36.6 C 74 18 115/77 95 11/17/19 10:42 37.2 C 60 18 118/54 L 95 Pain Intensity Left Knee: Pain Intensity: 0 Notes Mental Status: alert / awake / arousable and participated in evaluation Patient Amnestic to Procedure: Yes Nausea / Vomiting: adequately controlled Pain: adequately controlled Airway Patency, RR, SpO2: stable & adequate BP & HR: stable & adequate Hydration State: stable & adequate Neuraxial Anesthesia: was administered and sensory block resolved Anesthetic Complications: no major complications apparent
[2019-11-18] MEDS ORDERED: RIVAROXABAN 10 MG TABLET PO SCH (09:00)
[2019-11-18] MEDS ORDERED: estradioL 1 MG TAB PO SCH (09:00)
[2019-11-18] MEDS ORDERED: LORATADINE 10 MG TAB PO SCH (09:00)
[2019-11-18] MEDS ORDERED: MULTIVITAMIN TAB PO SCH (09:00)
--- NOTE | 2019-11-18 09:40 | Orthopedic Progress Note ---
Date of Service November 18, 2019 Assessment & Plan (1) Painful total knee replacement, left: POD #1 s/p Left Total Knee Revision with Poly Exchange(Left) three 4 x 18 high flex journey 2 poly pt/ot dvt proph with [place]/SCD/Xarelto x 2 weeks1 plan for d/c home w OPPT after PT today. Subjective POD #1 s/p left knee poly exchange Review of Systems Constitutional: no fever, no chills and no sweats Respiratory: no cough and no dyspnea Cardiovascular: no chest pain and no dyspnea Gastrointestinal: no abdominal pain, no nausea and no vomiting Physical Exam Physical Exam: Vital Signs Temp 36.9 C 11/18/19 07:10 Pulse 50 L 11/18/19 07:10 Resp 16 11/18/19 07:10 BP 123/83 11/18/19 07:10 Pulse Ox 92 11/18/19 07:10 Intake & Output 11/17/19 11/18/19 11/18/19 18:59 06:59 18:59 Intake Total 2522.5 / 3722.500 1200.000 / 3722.50 0 Output Total 705 / 3305 2600 / 3305 Balance 1817.5 / 417.500 -1400.000 / 417.50 0 Weight 129.4 kg Intake: IV 872.5 / 9101.412 9304.000 / 1872.50 0 Ancef 3000MG 7 2.5 ml @ 130 mls/ 72.5 / 72.5 hr IV PREOP SC H Rx#:[id number] Lr 1,000 ml @ 15 mls/hr IV . 600.0 / 600.0 Q24H IVETH Rx#:[id number] Nss 1000ML 1,0 00 ml @ 100 mls/ 1000.000 / 1000.00 0 hr IV .Q10H SC H Rx#:[id number] TRANEXAMIC ACI D / 0.7% NACL 1, 200 / 200 000 mg In 100 ml @ 600 mls/hr IV NOW STA Rx# :[id number] IV Perioperative 1650 / 1650 Oral 200 / 200 Output: Urine 700 / 3300 2600 / 3300 Estimated Blood Loss 5 / 5 Constitutional: WD/WN, vitals as above no acute distress Musculoskeletal: Left Leg: NVDI, calf SNT, negative leighann sign. DP palpable, able to wiggle toes/ankle movement without difficulty. dressing clean dry and intact. Results & Data Vital Signs (Past 12 Hours) Vital Signs Temp Pulse Pulse Resp BP Pulse Ox 11/18/19 07:10 36.9 C 50 L 16 123/83 92 11/18/19 07:01 36.5 C 55 L 16 131/84 92 11/18/19 03:23 36.5 C 55 L 16 141/88 H 92 11/17/19 23:32 36.6 C 53 L 16 125/78 92 Laboratory Results Laboratory Results WBC 12.39 K/uL (4.8-10.8) H 11/18/19 05:57 RBC 4.15 M/uL (4.2-5.4) L 11/18/19 05:57 Hgb 13.0 g/dL (12.0-16.0) 11/18/19 05:57 Hct 38.2 % (37-47) 11/18/19 05:57 MCV 92.0 fL (80-100) 11/18/19 05:57 MCH 31.3 pg (25-34) 11/18/19 05:57 MCHC 34.0 g/dL (32-36) 11/18/19 05:57 RDW Std Deviation 44.0 fL (36.4-46.3) 11/18/19 05:57 RDW Coeff of Reena 13.1 % (11.5-14.5) 11/18/19 05:57 Plt Count 293 K/uL (130-400) 11/18/19 05:57 MPV 9.2 fL (7.4-10.4) 11/18/19 05:57 Immature Gran % (Auto) 0.3 % 10/19/19 11:18 Neut % (Auto) 66.5 % 10/19/19 11:18 Lymph % (Auto) 25.1 % 10/19/19 11:18 [place] % (Auto) 6.3 % 10/19/19 11:18 Eos % (Auto) 1.6 % 10/19/19 11:18 Baso % (Auto) 0.2 % 10/19/19 11:18 Immature Gran # (Auto) 0.03 K/uL (0.00-0.02) H 10/19/19 11:18 Neut # (Auto) 6.42 K/uL (1.4-6.5) 10/19/19 11:18 Lymph # (Auto) 2.42 K/uL (1.2-3.4) 10/19/19 11:18 [place] # (Auto) 0.61 K/uL (0.11-0.59) H 10/19/19 11:18 Eos # (Auto) 0.15 K/uL (0-0.5) 10/19/19 11:18 Baso # (Auto) 0.02 K/uL (0-0.2) 10/19/19 11:18 PT 10.2 Seconds (9.0-12.0) 10/19/19 11:18 INR 1.0 (0.9-1.1) 10/19/19 11:18 APTT 27.2 Seconds (21.0-31.0) 10/19/19 11:18 PTT Ratio 1.0 10/19/19 11:18 Sodium 138 mmol/L (136-145) 11/18/19 05:57 Potassium 4.1 mmol/L (3.5-5.1) 11/18/19 05:57 Chloride 108 mmol/L (98-107) H 11/18/19 05:57 Carbon Dioxide 25 mmol/L (21-32) 11/18/19 05:57 Anion Gap 5.0 (3-11) 11/18/19 05:57 BUN 9 mg/dl (7-18) 11/18/19 05:57 Creatinine 0.69 mg/dl (0.6-1.2) 11/18/19 05:57 Est Cr Clr Drug Dosing 144.6 ml/min 11/18/19 05:57 Est GFR ( Amer) 118.5 11/18/19 05:57 Est GFR (Non-Af Amer) 102.2 11/18/19 05:57 BUN/Creatinine Ratio 12.4 (10-20) 11/18/19 05:57 Glucose 117 mg/dl (70-99) H 11/18/19 05:57 Estimat Average Glucose 108 mg/dl 10/19/19 11:18 Hemoglobin A1c 5.4 % (4.5-5.6) 10/19/19 11:18 Calcium 8.7 mg/dl (8.5-10.1) 11/18/19 05:57 Albumin 3.3 gm/dl (3.4-5.0) L 10/19/19 11:18 Urine Color Yellow 10/19/19 11:18 Urine Appearance Clear (Clear) 10/19/19 11:18 Urine pH 5.0 (4.5-7.5) 10/19/19 11:18 Ur Specific [place] 1.024 (1.000-1.030) 10/19/19 11:18 Urine Protein Negative (Negative) 10/19/19 11:18 Urine Glucose (UA) Negative (Negative) 10/19/19 11:18 Urine Ketones Negative (Negative) 10/19/19 11:18 Urine Blood Negative (Negative) 10/19/19 11:18 Urine Nitrite Negative (Negative) 10/19/19 11:18 Urine Bilirubin Negative (Negative) 10/19/19 11:18 Urine Urobilinogen Negative (Negative) 10/19/19 11:18 Ur Leukocyte Esterase Negative (Negative) 10/19/19 11:18 Blood Type B Positive 11/17/19 10:12 Antibody Screen NEGATIVE 11/17/19 10:12 Crossmatch See Detail 11/17/19 10:12
[2019-11-18] MEDS: DOCUSATE SODIUM 100 MG CAP PO SCH (09:44)
--- NOTE | 2019-11-19 18:41 | Discharge Summary ---
Date of Service date of discharge: November 18, 2019 date of admission: 11-17-19 Admission HPI Per Admitting Provider Ms Prasad is a 49 year old female who is here for a follow up of left knee pain, presents for pre-op eval prior to a left knee poly exchange vs left total knee revision at [facility]. She complains of pain in her left knee. Currently the patient states that the symptoms are moderate-severe and is described as aching, sharp and throbbing. The symptoms occur intermittently. The symptoms are aggravated by daily activities, ascending stairs, descending stairs, driving, first steps while awake, movement, repetitive activities, sleeping in any position and walking. Marcia states that the symptoms are relieved by no specific activity. In addition to knee pain, she is also experiencing difficulty bending, decreased mobility, difficulty going to sleep, limping, nighttime awakening, pain, stiffness, tenderness and weakness. The patient has had a previous x-ray and bone scan. 01/18/2015 Dr. Grimaldo performed b/l knee TKA. Principal Diagnosis left knee pain/laxity s/p left total knee arthroplasty Discharge Exam Constitutional WD/WN, vitals as above no acute distress Musculoskeletal left knee: NVDI, calf SNT, negative leighann sign. DP palpable, able to wiggle toes/ankle movement without difficulty. JOSH dressing clean dry and intact. expected post-operative bruising noted. Discharge Data Allergies Allergy/AdvReac Type Severity Reaction Status Date / Time aspirin Allergy Unknown rash, Verified 11/17/19 10:16 hives, swelling pollen extracts Allergy Unknown hayfever Verified 11/17/19 10:16 Consultations 11/17/19 14:56 Consult Case Management - Discharge Planning Routine Procedures Performed Operation Date: 11/17/19 12:35 Actual Procedures p Left Total Knee Revision with Poly Exchange(Left) - David Grimaldo DO Ordered Studies 11/17/19 05:00 US - OR guided needle placemen Routine Hospital Course (1) Painful total knee replacement, left: POD #1 s/p Left Total Knee Revision with Poly Exchange(Left) three 4 x 18 high flex journey 2 poly pt/ot dvt proph with [place]/SCD/Xarelto x 2 weeks1 plan for d/c home w OPPT after PT today. Total Time Total Time Spent Total Time Spent (In Minutes): 15 Total Time Includes: Examination of the Patient and Discharge Planning Discharge Plan Discharge Items Patient Disposition: Home - Self-Care Reason For Visit: LEFT KNEE MECHANICAL LOOSENING OF OTHER INTERNAL P Discharge Diagnosis: s/p Left Total Knee Revision with Poly Exchange(Left) three 4 x 18 high flex journey 2 poly Condition on Discharge: Good Activity: Per Instructions section Lifting: Wait until after follow-up appointment Exercise/Sports: Wait until after follow-up appointment Weightbearing: Full weightbearing and Left weightbearing Non-emergency contact: Surgeon Call non-emergency contact if: your temperature is above 101, your wound has increased redness, your wound has increased drainage and your wound pain has increased Follow-up/Referrals: Sydney Barkley MD [Primary Care Provider] - Diet: Regular Addtl Attending Provider Instructions: ACTIVITY RECOMMENDATIONS: SELF CARE INSTRUCTIONS AFTER POLY EXCHANGE A. You may need to continue a physical therapy program after discharge from the hospital. There are several options available to you. Your doctor will assist you in selecting the best one for you. 1. An out-patient facility 2 to 3 times a week for therapy or home therapy. 2. Continue working on all exercises taught to you in the hospital. Your goals should be to increase bending of your knee to 90 degrees and beyond and to fully straighten your knee. B. You may progress at your own pace from walking with a walker or crutches to a cane; then to no assistive devices. C. Make walking a part of your daily routine. Be up as much as comfortable with rest periods throughout the day. Rest with leg elevation is very important. Use the ice wrap frequently for the first 3-4 weeks. D. There are no restrictions on activities. You may ride in a car, shop, participate in match maker and all social activities. E. Wear the long elastic stockings ([place] hose) 20 hours a day for 2 weeks after surgery. They can be removed several times a day for laundering and for a bath. F. You may shower, no tub baths until cleared by your doctor. SPECIAL CARE INSTRUCTIONS: VERY IMPORTANT TO READ AND REVIEW A. There are a few signs you need to watch for after you are home. Call [facility] if you notice any of the followin. Increased severe knee pain. Some pain is expected especially when you exercise. 2. Increased swelling in your leg or knee; pain or swelling of the calf muscle in either lower leg. 3. Any fluid drainage from the incision. 4. Shortness of breath or chest pain. B. Please call [facility] at if you have any concerns or questions about your operation or recovery. The doctor or his nurse will return your call promptly. C. You must take antibiotics before dental work, bladder, bowel or other surgery. Your doctor will provide you with a permanent care to carry describing this precaution. IMPORTANT: * REMEMBER TO TAKE ASPIRIN, 81 MG, TWICE DAILY FOR 4 WEEKS UNLESS OTHERWISE DIRECTED. THIS IS YOUR BLOOD THINNER. * HIGH RISK PATIENTS MAY BE PRESCRIBED A STRONGER BLOOD THINNER. THIS WILL BE PROVIDED AT DISCHARGE. * CALL IF INCREASED PAIN, REDNESS, DRAINAGE OR FEVER GREATER THAT 101. * WEAR [place] HOSE 20 HOURS PER DAY FOR 2 WEEKS. * Prevena- This is a large suction dressing covering your incision. This will help pull any excess drainage from the wound and allow your incision to heal properly. You may shower with this if you can keep the unit outside of the shower. If any bleeding or leakage is noted please call your doctor's office. This will remain on your incision for 7 days and then should be removed. This can be done yourself or by the home nursing staff if applicable. The entire unit is disposable once removed. Once removed, keep incision clean and dry. If redness or drainage is noted, please call your surgeon. IF INCISION IS LEAKING THROUGH DRESSING, CALL THE OFFICE . FOLLOW UP VISIT: If appointment is not already scheduled: Please call [facility] to make a follow-up appointment for 2 weeks after your surgery at . Pending Studies at Discharge: No Stand-Alone Forms: My [facility] [employer], Smoking Cessation Medications and DC Order Prescriptions: New Xarelto 10 mg Tablet 10 mg PO DAILY 14 Days Qty: 14 RF: 0 acetaminophen 500 mg Tablet 1,000 mg PO Q8 14 Days Qty: 84 RF: 0 oxycodone 5 mg Tablet 5 - 10 mg PO Q6H PRN (Reason: pain) Qty: 30 RF: 0 docusate sodium 100 mg Capsule 100 mg PO BID 10 Days Qty: 20 RF: 0 cefadroxil 500 mg capsule 500 mg PO BID 10 Days Qty: 20 RF: 0 Continued estradiol 1 mg Tablet 1 mg PO QAM RF: 0 montelukast [Singulair] 10 mg Tablet 10 mg PO QPM RF: 0 multivitamin Capsule 1 cap PO QAM RF: 0 loratadine [Claritin] 10 mg Tablet 10 mg PO QAM RF: 0 sodium chloride [Saline Mist] 0.65 % Aerosol,[place] 1 spray INTRANASAL BID RF: 0 Discharge Orders: Discharge Order (Routine); Ordered 11/18/19 Ordered By: Ted Peterson Admission Data Admit Date/Time: 11/17/19 14:08 Attending Provider: David Grimaldo Admit Provider: David Grimaldo Primary Care Provider: Sydney Barkley Other Interventions: Discharge Summary Assessment (RN) Last Done: 11/18/19 11:13 DC Date/Time DO NOT enter until pt leaves facility: 11/18/19 12:26
== END 2019-11-18 12:26 | disposition home or self-care (01) | DRG 488 ==
LOC: ASU 09:49 → 3E 14:08